=== PATIENT | female | born 1970 | race Asian ===

== ENCOUNTER 2021-10-23 04:58 | Inpatient (IN) | payer OTHER ==
[~2021-10-23] VITALS: Ht 317.5 cm; Wt 154.2 kg
[2021-10-23] MEDS ORDERED: SODIUM CHLORIDE 0.9% 1,000 ML IV ONE (06:15)
[2021-10-23] MEDS: MORPHINE SULFATE 4 MG/ML CPJ (NOT FOR IM USE) IV SCH ×2 (07:30→14:20)
[2021-10-23] MEDS ORDERED: ACETAMINOPHEN 325MG TABLET PO SCH (07:30)
[2021-10-23 08:56] LABS: BASOPHILS % 0.8 % (0.0-2.0); EOSINOPHILS % 1.1 % (0.0-5.0); HEMATOCRIT. 44.2 % (36.0-48.0); HEMOGLOBIN. 14.4 g/dL (12.0-16.0); LYMPHOCYTES % 11.2 % (20.0-50.0); MEAN CORPUSCULAR HEMOGLOBIN 28.8 pg (28.0-32.0); MEAN CORPUSCULAR VOLUME 88.2 fL (81.0-99.0); MEAN PLATELET VOLUME 8.6 fl (7.4-10.4); MONOCYTES % 5.8 % (2.0-8.0); NEUTROPHILS % 81.1 % (40.0-76.0); PLATELET 206 x1000/uL (130-400); RED BLOOD CELL COUNT 5.01 mill/uL (4.2-5.4); RED CELL DISTRIBUTION WIDTH 15.4 % (11.6-14.6)
[2021-10-23 09:04] LABS: CHLORIDE 104 mEq/L (98-107)
[2021-10-23] MEDS ORDERED: MORPHINE SULFATE 4 MG/ML CPJ (NOT FOR IM USE) IV ONE (15:00)
[2021-10-23] MEDS ORDERED: IOHEXOL-350 100 ML BOTTLE ONE (15:36)
[2021-10-23] MEDS ORDERED: KETOROLAC 15MG/ML VIAL IV ONE (16:30)
[2021-10-23] MEDS ORDERED: CEFTRIAXONE 1,000 MG in DEXTROSE 5% WATER 50 ML IV NR (16:30)
[2021-10-23] MEDS ORDERED: DOXYCYCLINE HYCLATE 100MG CAPSULE PO NR (16:30)
[2021-10-23] MEDS ORDERED: ACETAMINOPHEN 325MG TABLET PO ONE (17:15)
[2021-10-23] MEDS ORDERED: HYDRALAZINE 20MG/ML VIAL IV ONE (17:15)
[2021-10-23 18:52] LABS: CLARITY URINE CLEAR (CLEAR); COLOR URINE YELLOW (YELLOW); KETONES URINE NEGATIVE (NEGATIVE); LEUKOCYTE ESTERASE URINE NEGATIVE (NEGATIVE); NITRITE URINE NEGATIVE (NEGATIVE); OCCULT BLOOD URINE NEGATIVE (NEGATIVE); PROTEIN URINE NEGATIVE (NEGATIVE)
[2021-10-23] MEDS ORDERED: CLONIDINE 0.2MG TABLET PO NR (19:00)
[2021-10-23] MEDS ORDERED: ONDANSETRON HCL 4MG/2ML INJ IV NR (19:00)
[2021-10-23] MEDS ORDERED: HYDRALAZINE 20MG/ML VIAL IV PRN (19:00)
[2021-10-23 22:00] VITALS: BP 174/89
[2021-10-24] MEDS ORDERED: CLONIDINE 0.1MG TABLET PO PRN (00:45)
[2021-10-24] MEDS ORDERED: HYDROCODONE/ACETAMINOPHEN 5/325MG TABLET PO PRN (02:00)
[2021-10-24] MEDS ORDERED: CEFTRIAXONE 1 G PREMIX 50 ML IV SCH (02:15)
[2021-10-24] MEDS ORDERED: ONDANSETRON HCL 4MG/2ML INJ IV PRN (02:30)
[2021-10-24 07:09] LABS: BASOPHILS % 0.3 % (0.0-2.0); EOSINOPHILS % 0.5 % (0.0-5.0); HEMATOCRIT. 45.1 % (36.0-48.0); HEMOGLOBIN. 14.8 g/dL (12.0-16.0); LYMPHOCYTES % 11.5 % (20.0-50.0); MEAN CORPUSCULAR HEMOGLOBIN 28.7 pg (28.0-32.0); MEAN CORPUSCULAR VOLUME 87.8 fL (81.0-99.0); MEAN PLATELET VOLUME 9.2 fl (7.4-10.4); MONOCYTES % 7.6 % (2.0-8.0); NEUTROPHILS % 80.1 % (40.0-76.0); PLATELET 234 x1000/uL (130-400); RED BLOOD CELL COUNT 5.14 mill/uL (4.2-5.4)
[2021-10-24 08:00] VITALS: BP 124/73
[2021-10-24] MEDS ORDERED: NALOXONE HCL 0.4MG/ML VIAL IV PRN (08:15)
[2021-10-24] MEDS: ENOXAPARIN 40MG/0.4ML SYR SUBCUT SCH ×2 (08:28→20:45)
[2021-10-24] MEDS: ASPIRIN 81MG TABLET PO SCH (08:29)
[2021-10-24] MEDS: GUAIFENESIN-DM 200MG-20MG/10ML UDC PO PRN ×3 (08:29→17:37)
[2021-10-24] MEDS ORDERED: LOSARTAN POTASSIUM 100 MG TABLET PO SCH (09:00)
[2021-10-24] MEDS ORDERED: AMLO5TAB88 PO (11:08)
[2021-10-24] MEDS ORDERED: CLON0.1T PO (11:08)
[2021-10-24 12:00] VITALS: BP 145/84
[2021-10-24] MEDS ORDERED: IPRATROPIUM/ALBUTEROL 0.5-3(2.5)MG/3ML NEB HHN PRN (12:15)
[2021-10-24] MEDS: AZITHROMYCIN 500 MG in DEXT 5% WATER 250 ML IV SCH (12:42)
[2021-10-24 16:00] VITALS: BP 150/87
[2021-10-24] MEDS ORDERED: CEFTRIAXONE 1,000 MG in DEXTROSE 5% WATER 50 ML IV SCH (17:00)
[2021-10-24] MEDS ORDERED: LACTULOSE 20G/30ML UDC PO PRN (17:49)
[2021-10-24] MEDS: DOCUSATE SODIUM 250MG CAPSULE PO SCH (17:53)
[2021-10-24 20:00] VITALS: BP 160/83
[2021-10-24] MEDS: ACETAMINOPHEN 325MG TABLET PO PRN (20:51)
[2021-10-24] MEDS ORDERED: AMLODIPINE 5MG TABLET PO SCH (21:00)
[2021-10-24] MEDS ORDERED: CLONIDINE 0.1MG TABLET PO SCH (21:00)
[2021-10-25] VITALS: BP 162/91
[2021-10-25] MEDS: GUAIFENESIN-DM 200MG-20MG/10ML UDC PO PRN (01:12)
[2021-10-25 04:00] VITALS: BP 171/94
[2021-10-25] MEDS: ACETAMINOPHEN 325MG TABLET PO PRN (05:00)
[2021-10-25 06:17] LABS: BASOPHILS % 0.9 % (0.0-2.0); EOSINOPHILS % 2.7 % (0.0-5.0); HEMATOCRIT. 41.3 % (36.0-48.0); HEMOGLOBIN. 13.7 g/dL (12.0-16.0); LYMPHOCYTES % 18.1 % (20.0-50.0); MEAN CORPUSCULAR HEMOGLOBIN 29.2 pg (28.0-32.0); MEAN CORPUSCULAR VOLUME 88.2 fL (81.0-99.0); MEAN PLATELET VOLUME 9.1 fl (7.4-10.4); NEUTROPHILS % 72.3 % (40.0-76.0); PLATELET 214 x1000/uL (130-400); RED BLOOD CELL COUNT 4.69 mill/uL (4.2-5.4); RED CELL DISTRIBUTION WIDTH 15.1 % (11.6-14.6)
[2021-10-25 07:12] LABS: CHLORIDE 104 mEq/L (98-107)
[2021-10-25] MEDS ORDERED: PNEUMOCOCCAL 23-VAL P-SAC VAC 0.5 ML IM ONE (08:00)
[2021-10-25 08:30] VITALS: BP 140/98
[2021-10-25] MEDS: DOCUSATE SODIUM 250MG CAPSULE PO SCH (09:00)
[2021-10-25] MEDS: ASPIRIN 81MG TABLET PO SCH (09:22)
[2021-10-25] MEDS: ENOXAPARIN 40MG/0.4ML SYR SUBCUT SCH (09:23)
[2021-10-25] MEDS ORDERED: LEVO500T90 MT (11:06)
[2021-10-25] MEDS ORDERED: METF-416 MT (11:06)
[2021-10-25] MEDS ORDERED: GLIP5TAB12 MT (11:06)
[2021-10-25] MEDS: AZITHROMYCIN 500 MG in DEXT 5% WATER 250 ML IV SCH (11:19)
[2021-10-25 12:00] VITALS: BP 159/89
[2021-10-25 12:11] VITALS: BP 159/89
== END 2021-10-25 15:37 | disposition home or self-care (01) | DRG 871 ==
LOC: ER 04:58 → 6WST 16:40 → ENRESERV 17:18
PROVIDERS: ADMIT Internal Medicine; ATTEND Internal Medicine
DX: A41.9 Sepsis, unspecified organism (principal); J18.9 Pneumonia, unspecified organism; J96.00 Acute respiratory failure, unspecified whether with hypoxia or hypercapnia; E44.0 Moderate protein-calorie malnutrition; Z68.1 Body mass index [BMI] 19.9 or less, adult; Z20.822 Contact with and (suspected) exposure to COVID-19; I10 Essential (primary) hypertension; E66.01 Morbid (severe) obesity due to excess calories; Z86.711 Personal history of pulmonary embolism; Z86.718 Personal history of other venous thrombosis and embolism; Z88.8 Allergy status to other drugs, medicaments and biological substances; Z79.899 Other long term (current) drug therapy; Z71.3 Dietary counseling and surveillance
CPT/HCPCS: 36415; 71045; 71275; 80048; 80053; 81003; 82962; 83036; 83880; 84484; 85025; 85379; 87426; 90732; 93005; 99285; J0360; J0456; J0696; J1650; J1885; J2270; J2405; J7030; J7060; Q9967